=== PATIENT | male | born 2000 | race Caucasian/White ===

== ENCOUNTER 2020-06-24 18:32 | Emergency (ER) | payer OTHER, BC ==
[2020-06-24] MEDS ORDERED: CEFTRIAXONE INJ 250 MG VIAL IM ONE (18:45)
[2020-06-24] MEDS ORDERED: LIDOCAINE 1% INJ-PF (10 MG/ML) 30 ML SDV INJ ONE (18:45)
[2020-06-24] MEDS ORDERED: AZITHROMYCIN 1 GM SUSP PACKET PO ONE (18:45)
[2020-06-24 18:47] VITALS: BP 127/74
--- NOTE | 2020-06-24 18:52 | ER Document Report ---
HPI - HPI Time Seen by Provider: 06/24/20 18:41 Notes: 19-year-old male presents to the emergency room for evaluation after STD exposure, reports his girlfriend tested positive for chlamydia. States he had a 1 night stand 2 months ago, unprotected sexual intercourse and then he met his girlfriend, he went away to [place] for 2 months and then came back and found out that she tested positive for chlamydia. He is unsure if he gave her chlamydia or if she had chlamydia prior to meeting him. She has been treated. Denies any testicular pain, dysuria, penile drainage. Denies any fevers or chills. Has not tried any [id number] medications. Denies prior history of STIs. Denies any chest pain, shortness of breath, nausea vomiting or diarrhea. Denies any bowel or bladder dysfunction, no saddle anesthesia. Past Medical History - General Information source: Patient - Social History Smoking Status: Unknown if Ever Smoked Family History: None Psychiatric Medical History: Reports: Hx Attention Deficit Hyperactivity Disorder - Immunizations Immunizations up to date: Yes Vertical Provider Document - CONSTITUTIONAL Agree With Documented VS: Yes Exam Limitations: No Limitations General Appearance: WD/WN Notes: MEDICATIONS: I agree with the patient medications as charted by the RN. ALLERGIES: I agree with the allergies as charted by the RN. PAST MEDICAL HISTORY/PAST SURGICAL HISTORY: Reviewed and agree as charted by RN. SOCIAL HISTORY: Reviewed and agree as charted by RN. FAMILY HISTORY: No significant familial comorbid conditions directly related to patient complaint EXAM: Reviewed vital signs as charted by RN. PHYSICAL EXAMINATION:reviewed vital signs by RN GENERAL: Well-appearing, well-nourished and in no acute distress. HEAD: Atraumatic, normocephalic. EYES: Pupils equal round and reactive to light, extraocular movements intact, sclera anicteric, conjunctiva are normal. ENT: Nares patent, oropharynx clear without exudates. Moist mucous membranes. NECK: Normal range of motion, supple without lymphadenopathy LUNGS: Breath sounds clear to auscultation bilaterally and equal. No wheezes rales or rhonchi. HEART: Regular rate and rhythm without murmurs ABDOMEN: Soft, nontender, nondistended abdomen. No guarding, no rebound. No masses appreciated. Musculoskeletal: Normal range of motion, no pitting or edema. No cyanosis. NEUROLOGICAL: Cranial nerves grossly intact. Normal speech, normal gait. Normal sensory, motor exams PSYCH: Normal mood, normal affect. SKIN: Warm, Dry, normal turgor, no rashes or lesions noted. Course - Re-evaluation Re-evalutation: 06/24/20 18:48 Patient treated with azithromycin 1 g and Rocephin 250 mg IM for treatment of chlamydia and gonorrhea. Do not engage in sexual intercourse for 7-10 days after treatment. Advised that partner needs to be treated as well so you are not reinfected. Pt verbalizes that understands the risks that come with having unprotected sex. discussed safe sex, using protection. pt was tx'd for G/C at this visit. advised to have protected sex always, go [facility] for further blood testing for HIV, hepatitis C, etc. Pt verbalized understanding of these instructions and agreed with plan of care. Discharge - Discharge Clinical Impression: STD (sexually transmitted disease) Condition: Stable Disposition: HOME, SELF-CARE Additional Instructions: You have been treated with azithromycin 1 g and Rocephin 250 mg IM for treatment of chlamydia and gonorrhea. Do not engage in sexual intercourse for 7-10 days after treatement. discussed safe sex, using protection. pt was tx'd for G/C at this visit. Advised to have protected sex always, go to [facility] for further blood testing for HIV, hepatitis C, etc. Return immediately for any new or worsening symptoms. Follow up with primary care provider, call tomorrow to make followup appointment. Referrals: GABY DODSON MD [Primary Care Provider] - Follow up as needed
[2020-06-24 19:15] LABS: AMORPHOUS SEDIMENT,URINE 1+ /HPF; APPEARANCE,URINE TURBID; BILIRUBIN,URINE NEGATIVE (NEGATIVE); COLOR,URINE YELLOW; GLUCOSE, URINE NEGATIVE (NEGATIVE); KETONES,URINE NEGATIVE (NEGATIVE); LEUKOCYTE ESTERASE,URINE NEGATIVE (NEGATIVE); NITRITE,URINE NEGATIVE (NEGATIVE); PROTEIN,URINE NEGATIVE (NEGATIVE); URINE SPECIFIC GRAVITY 1.023; UROBILINOGEN,URINE NEGATIVE mg/dL (<2.0)
[2020-06-24 20:50] LABS: CHLAM PCR DETECTED (NOT DETECT)
== END 2020-06-24 19:15 | disposition home or self-care (01) ==
LOC: ER 18:32
DX: A56.8 Sexually transmitted chlamydial infection of other sites (principal); A54.9 Gonococcal infection, unspecified
CPT/HCPCS: 99284; 96372; 81001; 87491; 87591; J3490; Q0144; J0696